=== PATIENT | male | born 1990 | race Caucasian/White ===

== ENCOUNTER 2018-04-27 10:37 | Outpatient (CLI) | payer SELFPAY ==
[2018-04-27 11:22] LABS: HCT 43.6 % (40.0-50.0); HGB 15.2 g/dL (13.5-17.5); Mean Corp. HGB Concentration 34.9 g/dL (32.0-36.0); Mean Platelet Volume 10.4 fL (8.0-11.0); Platelet Count 186 x1000/uL (130-400); RBC Distribution Width 13.1 % (11.8-14.1); White Blood Cell Count 5.18 k/cumm (4.4-10.8)
[2018-04-27 12:24] LABS: ALT 30 U/L (12-78); AST 16 U/L (15-37); Albumin 4.1 g/dL (3.4-5.0); Alkaline Phosphatase 127 U/L (46-116); Anion Gap 8.7 mmol/L (3-11); BUN 10 mg/dL (7-18); Bilirubin, Total 0.4 mg/dL (0.2-1.0); CO2 28.3 mmol/L (21.0-32.0); CREATININE 0.89 mg/dL (0.70-1.30); Chloride 105 mmol/L (98-107); Glucose 94 mg/dL (70-100); Lipase 77 U/L (73-393); Potassium 4.4 mmol/L (3.5-5.1); Sodium 142 mmol/L (136-145); Total Protein 7.1 g/dL (6.4-8.2)
[2018-04-30 14:16] LABS: Hepatitis C Ab w Rflx HCV PCR Reactive (NEGAT)
[2018-05-01 15:14] LABS: HCV RNA Detection Quantitative Undetected IU/mL (UNDECT)
== END 2018-04-27 10:57 ==
PROVIDERS: PCP Nurse Practitioner Family; Visit Provider Internal Medicine
DX: R10.13 Epigastric pain (principal); R11.2 Nausea with vomiting, unspecified; R49.0 Dysphonia; B19.20 Unspecified viral hepatitis C without hepatic coma
CPT/HCPCS: 36415; 80053; 83690; 85027; 86803; 85025; 87522

== ENCOUNTER 2018-08-16 09:14 | Emergency (ER) | payer MEDICAID, SELFPAY ==
[2018-08-16 09:18] VITALS: BP 127/66; PULSE 68; RESP 16; TEMP 36.8; O2SAT 97
--- NOTE | 2018-08-16 09:42 | W.ED.GENAD ---
Discharge Plan Disposition Patient Disposition: HOME Discharge Details Chief Complaint: Nausea/Vomit/Diar Clinical Impression: Nausea & vomiting, Diarrhea Primary Care Provider: Bryson Willard ED Provider: Ry Cheatham Home Meds and New Rx's Prescriptions: New ondansetron 4 mg tablet,disintegrating 4 mg PO BID PRN PRN (Reason: nausea and vomiting) 5 Days Qty: 10 RF: 0 Continued omeprazole 20 MG tablet,delayed release (DR/EC) 20 mg PO DAILY RF: 0 Buprenorphine/Naloxone [Suboxone 12 MG-3 MG SL FILM] 1 EACH Film 12 mg Sublingual DAILY RF: 0 ibuprofen 800 MG tablet 600 mg PO ONCE RF: 0 Discharge Instructions Instructions: Dehydration (ED), Acute Nausea and Vomiting (ED) Additional Instructions: Please drink small amounts of fluid often to stay hydrated. Use nausea medicine as prescribed. Please contact your primary care physician to arrange follow-up. Return to the ER for any worsening or new concerning symptoms. Stand Alone Forms: Work Release Referrals: Bryson Willard MD [Primary Care Provider] - Medical Decision Making 9:45 --28-year-old male here with nausea, vomiting, loose stool for the past 4 days. Abdomen benign. Hemodynamically stable. Clinically dehydrated. Plan to give IV fluid bolus. Will check screening labs including LFTs as patient has tested positive for hepatitis C in the past but then had a negative test subsequently. 11:50 --labs reviewed: Patient did have some ketones in his urine. Chemistries unremarkable. He was given 2 L of crystalloid and offered Zofran which he refused. He noted he was feeling much better and requesting discharge at this time. He is tolerating p.o. fluid. Disposition decision was made weighing the risks and benefits of hospitalization versus outpatient treatment, the risk for further decompensation, and the patient's wishes. The patient was stable and requested discharge. Prior to discharge, my usual and customary return precautions were reviewed with the patient - this included follow-up instructions and reason to return to the emergency department if condition worsens, does not improve as expected, or other new concerns arise. HPI General Mode of arrival: ambulatory. Date/Time Provider Initiated Documentation: 08/16/18 09:32. Limitations to Documentation: no limitations. Information obtained by: patient. HPI Narrative: 28yo m here with nausea, vomiting, and loose stool for the past 4 days. Symptoms persistent with no modifiers. No associated abdominal pain or fever. Has associated ENCINAS and body aches. Feels dehydrated. No recent travel. Related Data Home Medications Medication Instructions Recorded Confirmed omeprazole 20 mg PO DAILY 11/14/15 08/16/18 Buprenorphine/Naloxone [Suboxone 12 mg SUBLINGUAL DAILY 06/27/17 08/16/18 12 MG-3 MG SL FILM] ibuprofen 600 mg PO ONCE 06/27/17 08/16/18 ondansetron 4 mg PO BID PRN PRN 5 Days #10 tab 08/16/18 Previous Rx's Medication Instructions Recorded ondansetron 4 mg PO BID PRN PRN 5 Days #10 tab 08/16/18 Allergies Allergy/AdvReac Type Severity Reaction Status Date / Time No Known Allergies Allergy Unverified 08/16/18 09:34 General Stated Complaint: Nausea/Vomit/Diar MARIE: 3 Review of Systems Review of Systems All systems reviewed & are unremarkable except as noted in HPI and below Respiratory Reports cough (chronic) Gastrointestinal Denies melena, Denies hematochezia, Reports diarrhea, Reports nausea, Reports vomiting and Denies hematemesis [facility] Social History Smoking/Tobacco Use Status: Current every day Exam Const General: cooperative and no acute distress [facility] Head: normocephalic and atraumatic Mouth: mucous membranes dry Eyes Conjunctivae: normal conjunctivae Sclera: normal sclerae EOM: EOM intact bilaterally Neck Neck: trachea midline and supple Resp Auscultation: clear to auscultation bilaterally, no rales, no rhonchi and no wheezes Cardio Jugular venous pressure: no JVD Rate: regular rate and not tachycardic Rhythm: regular rhythm GI Palpation: soft, not firm, no guarding, no masses, not rigid and nontender Skin General skin exam: no rashes or lesions noted Neuro General: alert, awake, oriented x3 and tone normal Extrem General: no edema Psych Appearance: grossly normal Mental Status: mental status grossly normal Speech and Movement: speech and movement normal Course Vital Signs Temperature 36.8 C 08/16/18 09:18 Pulse 68 08/16/18 09:18 Respiratory Rate 16 08/16/18 09:18 Blood Pressure 127/66 08/16/18 09:18 Pulse Oximetry 97 08/16/18 09:18 Temperature 36.8 C 08/16/18 09:18 Temperature Source Skin 08/16/18 09:18 Pulse 68 08/16/18 09:18 Respiratory Rate 16 08/16/18 09:18 Blood Pressure 127/66 08/16/18 09:18 Blood Pressure Position Sitting 08/16/18 09:18 Pulse Oximetry 97 08/16/18 09:18 Oxygen Delivery Method Room Air 08/16/18 09:18 Oxygen Flow Rate 0 08/16/18 09:18 Pain Level 3 08/16/18 09:18
[2018-08-16] MEDS: Normal Saline 1,000 ML 1000 ML IV (09:45)
--- NOTE | 2018-08-16 09:45 | ED.GENADUL_ITS ---
Discharge Plan Disposition Patient Disposition: HOME Discharge Details Chief Complaint: Nausea/Vomit/Diar Clinical Impression: Nausea & vomiting, Diarrhea Primary Care Provider: Bryson Willard ED Provider: Ry Cheatham Home Meds and New Rx's Prescriptions: New ondansetron 4 mg tablet,disintegrating 4 mg PO BID PRN PRN (Reason: nausea and vomiting) 5 Days Qty: 10 RF: 0 Continued omeprazole 20 MG tablet,delayed release (DR/EC) 20 mg PO DAILY RF: 0 Buprenorphine/Naloxone [Suboxone 12 MG-3 MG SL FILM] 1 EACH Film 12 mg Sublingual DAILY RF: 0 ibuprofen 800 MG tablet 600 mg PO ONCE RF: 0 Discharge Instructions Instructions: Dehydration (ED), Acute Nausea and Vomiting (ED) Additional Instructions: Please drink small amounts of fluid often to stay hydrated. Use nausea medicine as prescribed. Please contact your primary care physician to arrange follow-up. Return to the ER for any worsening or new concerning symptoms. Stand Alone Forms: Work Release Referrals: Bryson Willard MD [Primary Care Provider] - Medical Decision Making 9:45 --28-year-old male here with nausea, vomiting, loose stool for the past 4 days. Abdomen benign. Hemodynamically stable. Clinically dehydrated. Plan to give IV fluid bolus. Will check screening labs including LFTs as patient has tested positive for hepatitis C in the past but then had a negative test subsequently. 11:50 --labs reviewed: Patient did have some ketones in his urine. Chemistries unremarkable. He was given 2 L of crystalloid and offered Zofran which he refused. He noted he was feeling much better and requesting discharge at this time. He is tolerating p.o. fluid. Disposition decision was made weighing the risks and benefits of hospitalization versus outpatient treatment, the risk for further decompensation, and the patient's wishes. The patient was stable and requested discharge. Prior to discharge, my usual and customary return precautions were reviewed with the patient - this included follow-up instructions and reason to return to the emergency department if condition worsens, does not improve as expected, or other new concerns arise. HPI General Mode of arrival: ambulatory . Date/Time Provider Initiated Documentation: 08/16/18 09:32 . Limitations to Documentation: no limitations . Information obtained by: patient . HPI Narrative: 28yo m here with nausea, vomiting, and loose stool for the past 4 days. Symptoms persistent with no modifiers. No associated abdominal pain or fever. Has associated ENCINAS and body aches. Feels dehydrated. No recent travel. Related Data Home Medications Medication Instructions Recorded Confirmed omeprazole 20 mg PO DAILY 11/14/15 08/16/18 Buprenorphine/Naloxone [Suboxone 12 mg SUBLINGUAL DAILY 06/27/17 08/16/18 12 MG-3 MG SL FILM] ibuprofen 600 mg PO ONCE 06/27/17 08/16/18 ondansetron 4 mg PO BID PRN PRN 5 Days #10 tab 08/16/18 Previous Rx's Medication Instructions Recorded ondansetron 4 mg PO BID PRN PRN 5 Days #10 tab 08/16/18 Allergies Allergy/AdvReac Type Severity Reaction Status Date / Time No Known Allergies Allergy Unverified 08/16/18 09:34 General Stated Complaint: Nausea/Vomit/Diar MARIE: 3 Review of Systems Review of Systems All systems reviewed & are unremarkable except as noted in HPI and below Respiratory Reports cough (chronic) Gastrointestinal Denies melena, Denies hematochezia, Reports diarrhea, Reports nausea, Reports vomiting and Denies hematemesis [facility] Social History Smoking/Tobacco Use Status: Current every day Exam Const General: cooperative and no acute distress [facility] Head: normocephalic and atraumatic Mouth: mucous membranes dry Eyes Conjunctivae: normal conjunctivae Sclera: normal sclerae EOM: EOM intact bilaterally Neck Neck: trachea midline and supple Resp Auscultation: clear to auscultation bilaterally, no rales, no rhonchi and no wheezes Cardio Jugular venous pressure: no JVD Rate: regular rate and not tachycardic Rhythm: regular rhythm GI Palpation: soft, not firm, no guarding, no masses, not rigid and nontender Skin General skin exam: no rashes or lesions noted Neuro General: alert, awake, oriented x3 and tone normal Extrem General: no edema Psych Appearance: grossly normal Mental Status: mental status grossly normal Speech and Movement: speech and movement normal Course Vital Signs Temperature 36.8 C 08/16/18 09:18 Pulse 68 08/16/18 09:18 Respiratory Rate 16 08/16/18 09:18 Blood Pressure 127/66 08/16/18 09:18 Pulse Oximetry 97 08/16/18 09:18 Temperature 36.8 C 08/16/18 09:18 Temperature Source Skin 08/16/18 09:18 Pulse 68 08/16/18 09:18 Respiratory Rate 16 08/16/18 09:18 Blood Pressure 127/66 08/16/18 09:18 Blood Pressure Position Sitting 08/16/18 09:18 Pulse Oximetry 97 08/16/18 09:18 Oxygen Delivery Method Room Air 08/16/18 09:18 Oxygen Flow Rate 0 08/16/18 09:18 Pain Level 3 08/16/18 09:18
[2018-08-16 09:53] LABS: Bilirubin Small (Negative); Blood Negative (Negative); Clarity Clear; Glucose Negative (Negative); Ketones 15 mg/dL (Negative); Leukocyte Esterase Negative (Negative); Nitrite Negative (Negative); Urobilinogen 0.2 EU/dL (Up TO 0.2)
[2018-08-16 10:11] LABS: Bacteria Negative HPF (Negative); C & S Indicated? No; Casts Negative LPF (Negative); Crystals Negative HPF (Negative); Epithelial Cells Rare HPF (Negative); Mucus Moderate (Negative); RBC 0-2 (0-2); WBC 0-2 HPF (0-5)
[2018-08-16] MEDS: Lactated Ringers 1,000 ML 1000 ML IV (10:24)
[2018-08-16 10:40] LABS: Abs Immature Grans 0.01 k/cumm (0.0-0.09); Absolute Basophil Count 0.02 k/cumm (0.0-0.2); Absolute Eosinophil Count 0.07 k/cumm (0.0-0.7); Absolute Lymphocyte Count 1.11 k/cumm (1.2-3.4); Absolute Monocyte Count 0.88 k/cumm (0.11-0.7); Absolute Neutrophil Count 4.47 k/cumm (1.2-6.7); Basophils % 0.3; Eosinophils % 1.1; HCT 47.3 % (40.0-50.0); HGB 16.7 g/dL (13.5-17.5); Immature Grans % 0.2; Lymphocytes % 16.9; Mean Corp. HGB Concentration 35.3 g/dL (32.0-36.0); Mean Corpuscular Hemoglobin 30.8 pg (27.0-33.0); Mean Corpuscular Volume 87.3 fL (80-95); Mean Platelet Volume 10.6 fL (8.0-11.0); Monocytes % 13.4; Neutrophils % 68.1; Platelet Count 183 x1000/uL (130-400); RBC 5.42 m/cumm (4.50-6.00); RBC Distribution Width 13.3 % (11.8-14.1); White Blood Cell Count 6.56 k/cumm (4.4-10.8)
[2018-08-16 10:57] LABS: ALT 21 U/L (12-78); AST 15 U/L (15-37); Alkaline Phosphatase 160 U/L (46-116); Anion Gap 9.4 mmol/L (3-11); BUN 9 mg/dL (7-18); Bilirubin, Total 0.5 mg/dL (0.2-1.0); CO2 29.6 mmol/L (21.0-32.0); CREATININE 0.93 mg/dL (0.70-1.30); Calcium 9.4 mg/dL (8.5-10.1); Chloride 101 mmol/L (98-107); Glucose 101 mg/dL (70-100); Lipase 81 U/L (73-393); Potassium 3.9 mmol/L (3.5-5.1); Sodium 140 mmol/L (136-145); Total Protein 7.8 g/dL (6.4-8.2)
[2018-08-16 11:17] LABS: Albumin 4.4 g/dL (3.4-5.0)
[2018-08-16 11:33] VITALS: BP 113/65; PULSE 60; RESP 14; TEMP 36.7; O2SAT 96
[2018-08-16 12:00] VITALS: BP 113/65; PULSE 60; RESP 14; TEMP 36.7; O2SAT 96
== END 2018-08-16 12:01 | disposition home or self-care (01) ==
PROVIDERS: Emergency Provider Student in an Organized Health Care Education/Training Program; PCP Internal Medicine
DX: R11.0 Nausea (principal); R19.7 Diarrhea, unspecified
CPT/HCPCS: 36415; 80053; 83690; 96361; 96374; 99284; 81003; 81015; 85025

== ENCOUNTER 2018-09-17 16:57 | Emergency (ER) | payer MEDICAID, SELFPAY ==
--- NOTE | 2018-09-17 17:07 | NUTRITION ---
pt stats that approximately 3 days ago he woke up with stiffness and pain in the back of his neck which has progresivly gotten worse tp the point where he can not rotate his head
[2018-09-17 17:09] VITALS: BP 142/92; PULSE 96; RESP 17; TEMP 37.4; O2SAT 95
--- NOTE | 2018-09-17 17:32 | DI.CT_ITS ---
SYMPTOMS/DIAGNOSIS: STIFF NECK, MIDLINE LOWER CERVICAL PAIN AND TENDERNESS TO PALPATION, PREVIOUS INTRAVENOUS DRUG USER, ? EPIDURAL SPACE INFECTION, ? ABSCESS CT OF THE CERVICAL SPINE: There is no evidence of fracture. No abnormal enhancing lesions are identified. There is some reversal of the normal cervical lordosis, which could be secondary to patient positioning or muscle spasm. There is no evidence of abscess. The parotid, submandibular and thyroid glands are unremarkable. No pneumothorax is seen at the lung apices. No tonsillar swelling or tonsillar abscess is seen. The vertebral and carotid arteries are unremarkable. IMPRESSION: Negative CT of the neck.
--- NOTE | 2018-09-17 17:39 | ED.GENADUL_ITS ---
Discharge Plan Disposition Patient Disposition: HOME Discharge Details Chief Complaint: Nk/Back Pain Clinical Impression: Acute neck pain, Arachnoid cyst Reason For Visit: stiff neck Primary Care Provider: Bryson Willard ED Provider: Ry Cheatham Home Meds and New Rx's Prescriptions: Continued omeprazole 20 MG tablet,delayed release (DR/EC) 20 mg PO DAILY RF: 0 Suboxone 12-3 mg Film 12 mg Sublingual DAILY RF: 0 ibuprofen 800 MG tablet 600 mg PO ONCE RF: 0 Discharge Instructions Instructions: Neck Pain (ED) Additional Instructions: Take ibuprofen as prescribed. Take Tylenol 650 mg every 6 hours as needed for pain. Please contact your primary care physician to arrange follow-up. You may need additional diagnostic testing. Return to the ER for any worsening or new concerning symptoms. Referrals: Bryson Willard MD [Primary Care Provider] - Medical Decision Making 17:38 --28-year-old male with prior history of IV drug here with midline low cervical upper thoracic back pain for the past 3 days. Neuro intact. Consider deep space infection. Plan to CT with IV contrast. Will give valium. 19:20 --CT cervical spine interpreted by radiology: FINDINGS: Vertebrae: Reversal of the normal cervical lordosis. No acute fracture or subluxation. Discs/Spinal canal/Neural foramina: No spinal stenosis. No neural foraminal narrowing. Other bones/joints: No focal erosions to suggest osteomyelitis. Soft tissues: The partially imaged arachnoid cyst is partially seen in the posterior fossa. Appears benign and incidental. Dental: Right mandibular dental caries. Larynx: Slight asymmetry of material within the vallecula is most likely within physiologic limits and is not appear particularly concerning especially at this patient's age. Lungs: Lung apices are normal. IMPRESSION: No CT evidence of discitis osteomyelitis. No soft tissue abscess. Suspect cervical strain. Patient was advised to follow-up with Dr. Willard. Arachnoid cyst noted and may be because of headaches that he is having the past. Advised he follow-up with his primary care physician and discuss official radiology report when available. Usual customary discharge instructions were provided. HPI General Mode of arrival: ambulatory . Date/Time Provider Initiated Documentation: 09/17/18 17:13 . Limitations to Documentation: no limitations . Information obtained by: patient . HPI Narrative: 28-year-old male with prior history of IV drug use here with chief complaint of neck pain. Patient notes he woke up 3 days ago with pain in his lower neck upper back in the middle. Pain has persisted. Flexeril and ibuprofen not helping. Pain is moderate to severe. Worse with movement of his neck. No associated headache. No numbness or weakness. No recent trauma. Related Data Home Medications Medication Instructions Recorded Confirmed omeprazole 20 mg PO DAILY 11/14/15 09/17/18 ibuprofen 600 mg PO ONCE 06/27/17 09/17/18 Suboxone 12 mg SUBLINGUAL DAILY 09/17/18 09/17/18 Allergies Allergy/AdvReac Type Severity Reaction Status Date / Time No Known Allergies Allergy Unverified 09/17/18 17:14 General Stated Complaint: Orthopedic MARIE: 4 Review of Systems Review of Systems All systems reviewed & are unremarkable except as noted in HPI and below Constitutional Denies headache(s) ENT Denies headache(s) Musculoskeletal Reports as per HPI Neurologic Denies headache(s) PFSH Social History Smoking/Tobacco Use Status: Current every day Exam Const General: cooperative and no acute distress HENMT Head: normocephalic and atraumatic Mouth: moist mucous membranes Eyes Conjunctivae: normal conjunctivae Sclera: normal sclerae EOM: EOM intact bilaterally Neck Neck: trachea midline Resp Auscultation: clear to auscultation bilaterally, no rales, no rhonchi and no wheezes Cardio Jugular venous pressure: no JVD Rate: regular rate and not tachycardic Rhythm: regular rhythm GI Palpation: soft, not firm, no guarding, no masses, not rigid and nontender Back/Spine/Pelvis Cervical Spine: cervical spinal tenderness (midline c7) and cervical ROM abnormal (limited 2/2 pain with rotation and extension) Thoracic/Lumbar Spine: thoracic spinal tenderness (t1 ttp) Skin General skin exam: no rashes or lesions noted Neuro General: alert, awake, oriented x3 and tone normal Extrem General: no edema Psych Appearance: grossly normal Mental Status: mental status grossly normal Speech and Movement: speech and movement normal Course Vital Signs Temperature 37.4 C 09/17/18 17:09 Pulse 96 H 09/17/18 17:09 Respiratory Rate 17 09/17/18 17:09 Blood Pressure 142/92 H 09/17/18 17:09 Pulse Oximetry 95 09/17/18 17:09 Temperature 37.4 C 09/17/18 17:09 Temperature Source Tympanic 09/17/18 17:09 Pulse 96 H 09/17/18 17:09 Respiratory Rate 17 09/17/18 17:09 Respiratory Effort 09/17/18 17:12 Blood Pressure 142/92 H 09/17/18 17:09 Blood Pressure Position Supine 09/17/18 17:09 Pulse Oximetry 95 09/17/18 17:09 Oxygen Delivery Method Room Air 09/17/18 17:09 Oxygen Flow Rate 0 09/17/18 17:09 Pain Level 8 09/17/18 17:22
[2018-09-17] MEDS: Diazepam 5 MG TAB PO (18:07)
[2018-09-17] MEDS: Omnipaque 350 MG/ML 100 ML BTL IJ (18:28)
[2018-09-17] MEDS: Normal Saline Flush 10 ML SYR IVP (18:29)
[2018-09-17 18:38] LABS: ALT 23 U/L (12-78); AST 17 U/L (15-37); Albumin 3.9 g/dL (3.4-5.0); Alkaline Phosphatase 97 U/L (46-116); Anion Gap 10.2 mmol/L (3-11); BUN 12 mg/dL (7-18); Bilirubin, Total 0.2 mg/dL (0.2-1.0); CO2 28.8 mmol/L (21.0-32.0); CREATININE 0.97 mg/dL (0.70-1.30); Chloride 106 mmol/L (98-107); Glucose 93 mg/dL (70-100); Potassium 3.8 mmol/L (3.5-5.1); Sodium 145 mmol/L (136-145); Total Protein 7.1 g/dL (6.4-8.2)
--- NOTE | 2018-09-17 18:54 | DI.VRAD_ITS ---
EXAM: CT Cervical Spine With Contrast EXAM DATE/TIME: 09/17/2018 5:35 PM CLINICAL HISTORY: 28 years old, male; Signs and symptoms; Other: Midline lower cervical pain and ttp. Prior ivdu; Additional info: ? Infection or abcess TECHNIQUE: Axial computed tomography images of the cervical spine with intravenous contrast. All CT scans at this facility use at least one of these dose optimization techniques: automated exposure control; mA and/or kV adjustment per patient size (includes targeted exams where dose is matched to clinical indication); or iterative reconstruction. Coronal and sagittal reformatted images were created and reviewed. CONTRAST: 100 ml of Omnipaque 350 administered intravenously. COMPARISON: No relevant prior studies available. FINDINGS: Vertebrae: Reversal of the normal cervical lordosis. No acute fracture or subluxation. Discs/Spinal canal/Neural foramina: No spinal stenosis. No neural foraminal narrowing. Other bones/joints: No focal erosions to suggest osteomyelitis. Soft tissues: The partially imaged arachnoid cyst is partially seen in the posterior fossa. Appears benign and incidental. Dental: Right mandibular dental caries. Larynx: Slight asymmetry of material within the vallecula is most likely within physiologic limits and is not appear particularly concerning especially at this patient's age. Lungs: Lung apices are normal. IMPRESSION: No CT evidence of discitis osteomyelitis. No soft tissue abscess. Dictated and Authenticated by: Janet Keen MD. Ordering:KAVYA Raza MD
[2018-09-17 19:10] LABS: Abs Immature Grans 0.01 k/cumm (0.0-0.09); Absolute Basophil Count 0.02 k/cumm (0.0-0.2); Absolute Eosinophil Count 0.18 k/cumm (0.0-0.7); Absolute Lymphocyte Count 2.26 k/cumm (1.2-3.4); Absolute Monocyte Count 0.72 k/cumm (0.11-0.7); Absolute Neutrophil Count 3.84 k/cumm (1.2-6.7); Basophils % 0.3; Eosinophils % 2.6; HCT 43.1 % (40.0-50.0); HGB 14.8 g/dL (13.5-17.5); Immature Grans % 0.1; Lymphocytes % 32.1; Mean Corp. HGB Concentration 34.3 g/dL (32.0-36.0); Mean Corpuscular Volume 90.2 fL (80-95); Mean Platelet Volume 10.5 fL (8.0-11.0); Monocytes % 10.2; Neutrophils % 54.7; Platelet Count 171 x1000/uL (130-400); RBC 4.78 m/cumm (4.50-6.00); RBC Distribution Width 13.6 % (11.8-14.1); White Blood Cell Count 7.03 k/cumm (4.4-10.8)
[2018-09-17 19:43] VITALS: BP 114/69; PULSE 60; RESP 16; TEMP 36.8; O2SAT 95
== END 2018-09-17 19:53 | disposition home or self-care (01) ==
PROVIDERS: Emergency Provider Student in an Organized Health Care Education/Training Program; PCP Internal Medicine
DX: M54.2 Cervicalgia (principal); G93.0 Cerebral cysts
CPT/HCPCS: 80053; 99285; 72126; 85025; 99284; J3490

== ENCOUNTER 2018-10-02 17:41 | Emergency (ER) | payer MEDICAID, SELFPAY ==
[2018-10-02 17:43] VITALS: BP 147/84; PULSE 100; RESP 16; TEMP 37; O2SAT 97
--- NOTE | 2018-10-02 17:55 | W.ED.GENAD ---
Discharge Plan Disposition Patient Disposition: HOME Condition: Stable Discharge Details Chief Complaint: RespSymp Clinical Impression: Cough Primary Care Provider: Bryson Willard ED Provider: Harry Guzman Home Meds and New Rx's Prescriptions: New prednisone 20 mg tablet 60 mg PO DAILY 5 Days Qty: 15 RF: 0 doxycycline hyclate 100 mg tablet 100 mg PO BID 7 Days Qty: 14 RF: 0 No Action omeprazole 20 MG tablet,delayed release (DR/EC) 20 mg PO DAILY RF: 0 Suboxone 12-3 mg Film 12 mg Sublingual DAILY RF: 0 Discharge Instructions Additional Instructions: You are being treated for early pneumonia. You have wheezing on exam. You should discuss with your primary care provider having formal testing for reactive airway disease Follow up with your primary care provider as scheduled tomorrow return to the emergency department if you have severe worsening shortness of breath or feel significantly more ill Medical Decision Making 28 yo male with hx of current smoking, denies alcohol or drug use comes in with 3 days of cough, and right ear pain. Denies recent travel, rashes, vomit. He is speaking in full sentences on exam, does have mild appearance of fatigue. He has wheezing at the bases bilaterally with no evidence of respiratory distress and does have smal amount of crackles at the right base. Both tm's show no redness or bulging, has mild fluid behind both ears. Could be viral uri but will tx for pna givfen lung exam findings. He has f/u with pcp tomorrow and will return if worsening. Given no fever and stable vitals do not feel imaging or labs indicated. I also advised that he get formal testing for Reactive airway disease Differential Diagnosis asthma, pna, uri, bronchitis HPI General Mode of arrival: ambulatory. Date/Time Provider Initiated Documentation: 10/02/18 17:51. Limitations to Documentation: no limitations. Information obtained by: patient. History of Present Illness 28 year old M presents to the emergency department with the chief complaint of right ear pain and cough, described as moderate, with intensity rated at 7. Quality is described as aching, Patient started experiencing this day(s) (3) and it has been constant. No relieving factors improve symptom(s), No exacerbating factors reported . Patient did receive the following treatments prior to arrival, none Related Data Home Medications Medication Instructions Recorded Confirmed omeprazole 20 mg PO DAILY 11/14/15 10/02/18 Suboxone 12 mg SUBLINGUAL DAILY 09/17/18 10/02/18 doxycycline hyclate 100 mg PO BID 7 Days #14 tab 10/02/18 prednisone 60 mg PO DAILY 5 Days #15 tab 10/02/18 Previous Rx's Medication Instructions Recorded doxycycline hyclate 100 mg PO BID 7 Days #14 tab 10/02/18 prednisone 60 mg PO DAILY 5 Days #15 tab 10/02/18 Allergies Allergy/AdvReac Type Severity Reaction Status Date / Time No Known Allergies Allergy Unverified 10/02/18 17:49 General Stated Complaint: RespSymp MARIE: 4 Review of Systems Review of Systems All systems reviewed & are unremarkable except as noted in HPI and below ENT Denies change in voice Gastrointestinal Denies vomiting Genitourinary Denies dysuria Integumentary/Breasts Denies rash [facility] Medical History Ureteral stone with hydronephrosis (Resolved) Headache (Acute) Hoarseness (Acute) Marijuana use, continuous (Acute) Anxiety and depression (Chronic) Cigarette smoker (Chronic) Encounter for monitoring Suboxone maintenance therapy (Chronic) Hiatal hernia (Chronic) History of hepatitis (Chronic) History of stomach ulcers (Chronic) Mood disorder (Chronic) Nausea & vomiting (Chronic) Obesity (Chronic) Opioid dependence (Chronic) Sleeping difficulties (Chronic) Social History Smoking and Tabacco status: Current every day Exam Const General: no acute distress Orientation: alert HENMT Head: normal to inspection Ears: external ears normal General nose exam: external nose normal Mouth: moist mucous membranes Eyes General: appearance normal, both eyes and all related structures Neck Neck: normal visual inspection Resp Effort & Inspection: normal respiratory effort and able to speak in complete sentences Cardio Rate: regular rate Skin General skin exam: no rashes or lesions noted Neuro General: alert and oriented x3 Extrem General: normal to inspection Psych Mental Status: mental status grossly normal Course Vital Signs Temperature 37.0 C 10/02/18 17:43 Pulse 100 H 10/02/18 17:43 Respiratory Rate 16 10/02/18 17:43 Blood Pressure 147/84 H 10/02/18 17:43 Pulse Oximetry 97 10/02/18 17:43 Temperature 37.0 C 10/02/18 17:43 Temperature Source Skin 10/02/18 17:43 Pulse 100 H 10/02/18 17:43 Respiratory Rate 16 10/02/18 17:43 Respiratory Effort Non-Labored 10/02/18 17:52 Respiratory Depth Normal 10/02/18 17:52 Blood Pressure 147/84 H 10/02/18 17:43 Blood Pressure Position Sitting 10/02/18 17:43 Pulse Oximetry 97 10/02/18 17:43 Oxygen Delivery Method Room Air 10/02/18 17:43 Oxygen Flow Rate 0 10/02/18 17:43 Pain Level 8 10/02/18 17:43
--- NOTE | 2018-10-02 17:58 | ED.GENADUL_ITS ---
Discharge Plan Disposition Patient Disposition: HOME Condition: Stable Discharge Details Chief Complaint: RespSymp Clinical Impression: Cough Primary Care Provider: Bryson Willard ED Provider: Harry Guzman Home Meds and New Rx's Prescriptions: New prednisone 20 mg tablet 60 mg PO DAILY 5 Days Qty: 15 RF: 0 doxycycline hyclate 100 mg tablet 100 mg PO BID 7 Days Qty: 14 RF: 0 No Action omeprazole 20 MG tablet,delayed release (DR/EC) 20 mg PO DAILY RF: 0 Suboxone 12-3 mg Film 12 mg Sublingual DAILY RF: 0 Discharge Instructions Additional Instructions: You are being treated for early pneumonia. You have wheezing on exam. You should discuss with your primary care provider having formal testing for reactive airway disease Follow up with your primary care provider as scheduled tomorrow return to the emergency department if you have severe worsening shortness of breath or feel significantly more ill Medical Decision Making 28 yo male with hx of current smoking, denies alcohol or drug use comes in with 3 days of cough, and right ear pain. Denies recent travel, rashes, vomit. He is speaking in full sentences on exam, does have mild appearance of fatigue. He has wheezing at the bases bilaterally with no evidence of respiratory distress and does have smal amount of crackles at the right base. Both tm's show no redness or bulging, has mild fluid behind both ears. Could be viral uri but will tx for pna givfen lung exam findings. He has f/u with pcp tomorrow and will return if worsening. Given no fever and stable vitals do not feel imaging or labs indicated. I also advised that he get formal testing for Reactive airway disease Differential Diagnosis asthma, pna, uri, bronchitis HPI General Mode of arrival: ambulatory . Date/Time Provider Initiated Documentation: 10/02/18 17:51 . Limitations to Documentation: no limitations . Information obtained by: patient . History of Present Illness 28 year old M presents to the emergency department with the chief complaint of right ear pain and cough, described as moderate, with intensity rated at 7. Quality is described as aching, Patient started experiencing this day(s) (3) and it has been constant. No relieving factors improve symptom(s), No exacerbating factors reported . Patient did receive the following treatments prior to arrival, none Related Data Home Medications Medication Instructions Recorded Confirmed omeprazole 20 mg PO DAILY 11/14/15 10/02/18 Suboxone 12 mg SUBLINGUAL DAILY 09/17/18 10/02/18 doxycycline hyclate 100 mg PO BID 7 Days #14 tab 10/02/18 prednisone 60 mg PO DAILY 5 Days #15 tab 10/02/18 Previous Rx's Medication Instructions Recorded doxycycline hyclate 100 mg PO BID 7 Days #14 tab 10/02/18 prednisone 60 mg PO DAILY 5 Days #15 tab 10/02/18 Allergies Allergy/AdvReac Type Severity Reaction Status Date / Time No Known Allergies Allergy Unverified 10/02/18 17:49 General Stated Complaint: RespSymp MARIE: 4 Review of Systems Review of Systems All systems reviewed & are unremarkable except as noted in HPI and below ENT Denies change in voice Gastrointestinal Denies vomiting Genitourinary Denies dysuria Integumentary/Breasts Denies rash [facility] Medical History Ureteral stone with hydronephrosis (Resolved) Headache (Acute) Hoarseness (Acute) Marijuana use, continuous (Acute) Anxiety and depression (Chronic) Cigarette smoker (Chronic) Encounter for monitoring Suboxone maintenance therapy (Chronic) Hiatal hernia (Chronic) History of hepatitis (Chronic) History of stomach ulcers (Chronic) Mood disorder (Chronic) Nausea & vomiting (Chronic) Obesity (Chronic) Opioid dependence (Chronic) Sleeping difficulties (Chronic) Social History Smoking and Tabacco status: Current every day Exam Const General: no acute distress Orientation: alert HENMT Head: normal to inspection Ears: external ears normal General nose exam: external nose normal Mouth: moist mucous membranes Eyes General: appearance normal, both eyes and all related structures Neck Neck: normal visual inspection Resp Effort & Inspection: normal respiratory effort and able to speak in complete se ntences Cardio Rate: regular rate Skin General skin exam: no rashes or lesions noted Neuro General: alert and oriented x3 Extrem General: normal to inspection Psych Mental Status: mental status grossly normal Course Vital Signs Temperature 37.0 C 10/02/18 17:43 Pulse 100 H 10/02/18 17:43 Respiratory Rate 16 10/02/18 17:43 Blood Pressure 147/84 H 10/02/18 17:43 Pulse Oximetry 97 10/02/18 17:43 Temperature 37.0 C 10/02/18 17:43 Temperature Source Skin 10/02/18 17:43 Pulse 100 H 10/02/18 17:43 Respiratory Rate 16 10/02/18 17:43 Respiratory Effort Non-Labored 10/02/18 17:52 Respiratory Depth Normal 10/02/18 17:52 Blood Pressure 147/84 H 10/02/18 17:43 Blood Pressure Position Sitting 10/02/18 17:43 Pulse Oximetry 97 10/02/18 17:43 Oxygen Delivery Method Room Air 10/02/18 17:43 Oxygen Flow Rate 0 10/02/18 17:43 Pain Level 8 10/02/18 17:43
[2018-10-02] MEDS: Albuterol HFA 8 GM 60 PUFF INH IH (17:59)
[2018-10-02] MEDS: Inhaler, Assist Device 1 EACH MC (18:00)
[2018-10-02 18:05] VITALS: BP 147/84; PULSE 100; RESP 16; TEMP 37; O2SAT 97
== END 2018-10-02 18:06 | disposition home or self-care (01) ==
PROVIDERS: Emergency Provider Emergency Medicine; PCP Internal Medicine
DX: R05 Cough (principal); H92.01 Otalgia, right ear; F17.210 Nicotine dependence, cigarettes, uncomplicated
CPT/HCPCS: 99283

== ENCOUNTER 2019-01-31 08:13 | Day surgery (SDC) | payer MEDICAID, SELFPAY ==
[2019-01-31 08:27] VITALS: BP 145/94; PULSE 80; RESP 16; TEMP 36.5; O2SAT 97
[2019-01-31] MEDS: Lactated Ringers 1,000 ML 80 ML IV ×2 (08:52→10:07)
--- NOTE | 2019-01-31 09:37 | W.PM.HP.N ---
Date of service: 01/31/19 Time of Service: 09:37 Assessment and Plan (1) Encounter for vasectomy: Current visit: Yes Status: Acute We discussed risk factors including bleeding, infection, chronic pain and recanalization of the vasa. The patient was again informed that he is not considered sterile right after this procedure. We will need a semen sample 8 to [address] to make sure the sperm are absent. History of Present Illness Chief Complaint: Elective sterilization Narrative: This is a 28-year-old gentleman who has 4 children. He and his partner are not interested in future pregnancies. He presents for vasectomy. He is never had prior scrotal surgery. He does have a history of substance abuse. He is on chronic Suboxone. He has no known bleeding disorders Review of Systems Review of Systems No fevers or chills No vision change or dysphasia No diabetes or thyroid No shortness of breath, cough or hemoptysis No chest pain or palpitations No nausea, vomiting, hepatitis. Hx GERD No seizures or peripheral neuropathy No bleeding disorders or anemia No gout PFSH Medical History Ureteral stone with hydronephrosis (Resolved) Headache (Acute) Hoarseness (Acute) Marijuana use, continuous (Acute) Anxiety and depression (Chronic) Cigarette smoker (Chronic) Encounter for monitoring Suboxone maintenance therapy (Chronic) Hiatal hernia (Chronic) History of hepatitis (Chronic) History of stomach ulcers (Chronic) Mood disorder (Chronic) Nausea & vomiting (Chronic) Obesity (Chronic) Opioid dependence (Chronic) Sleeping difficulties (Chronic) Surgical History History of surgery on left wrist (Acute) Social History Smoking/Tobacco Use Status: Current every day Tobacco Type: cigarettes Smoking packs per day: 10 Years smoked: 10 Tobacco: How many years used: 10 Alcohol Intake: never Drug use: Daily Substance use type: marijuana Details: Pt states he smokes and vapes marijuana daily Do you feel safe at home: Yes Do you feel safe in your relationship?: Yes Meds Home Medications Medication Instructions Recorded Confirmed Type omeprazole 20 mg PO DAILY 11/14/15 01/31/19 History buprenorphine-naloxone [Suboxone] 12 mg SUBLINGUAL DAILY 09/17/18 01/31/19 History Allergies Allergy/AdvReac Type Severity Reaction Status Date / Time No Known Allergies Allergy Unverified 01/31/19 08:26 Exam Narrative Exam Narrative: He is in no current distress. He does not appear septic or toxic. His vital signs are documented elsewhere in the chart His neck is supple none His chest wall motion is normal. His lungs are clear Cardiac exam shows a regular rate and rhythm The vas deferens are palpable and mobile He is awake and alert Results Last Vital Signs Temp 36.5 C 01/31/19 08:27 Pulse 80 01/31/19 08:27 Resp 16 01/31/19 08:27 BP 145/94 H 01/31/19 08:27 Pulse Ox 97 01/31/19 08:27
--- NOTE | 2019-01-31 09:42 | W.PM.DSUDISC ---
Discharge Plan Disposition Patient Disposition: HOME Condition: Stable Discharge Details Reason For Visit: vasectomy Attending Provider: Brenden Jones Primary Care Provider: Bryson Willard Home Meds and New Rx's Prescriptions: New ketorolac 10 mg tablet 10 mg PO Q6H MDD 4 PRN (Reason: pain) 2 Days Qty: 8 RF: 0 No Action omeprazole 20 MG tablet,delayed release (DR/EC) 20 mg PO DAILY RF: 0 buprenorphine-naloxone [Suboxone] 12-3 mg Film 12 mg Sublingual DAILY RF: 0 Discharge Instructions Additional Instructions: No lifting/straining for 48 hours Ice packs to scrotum (bag of frozen peas) for 48 hours while awake Script for Toradol sent to pharmacy - may take with tylenol but not with NSAIDs Semen sample needs to be brought to my office in 8 to 12 weeks Activity:: no lifting/straining for 48 hours Shower/Bathe:: 24 hours Diet:: As Tolerated Discharge Orders Discharge Orders: Discharge Order (Routine); Ordered 01/31/19 Ordered By: Brenden Jones DS: Diagnosis Discharge Diagnosis (1) Encounter for vasectomy: Status: Acute
[2019-01-31] MEDS: Lidocaine 1% Multi-Dose 50 ML VIAL (10:35)
[2019-01-31 11:20] VITALS: BP 118/64; PULSE 57; RESP 14; O2SAT 97
--- NOTE | 2019-02-01 07:49 | ROE_ITS ---
REPORT OF OPERATIVE PROCEDURE DATE OF PROCEDURE January 31, 2019 PREOPERATIVE DIAGNOSIS Elective sterilization. POSTOPERATIVE DIAGNOSIS Elective sterilization. PROCEDURE Vasectomy. SURGEON Brenden Jones M.D. ANESTHESIA MAC with local. COMPLICATIONS None. HISTORY This is a 28-year-old gentleman who has four children. He and his partner are not interested in [facility] pregnancies. He comes in for vasectomy. PROCEDURE The patient was brought to the Operating Room on 01/31/2019. He was given Monitored Anesthesia Care an d placed in the supine position. His genitalia was prepped and draped. We began on the patient's left side. We noticed a left varicocele, but we were able to isolate the v as deferens up against the scrotal skin. The skin was infiltrated with 1% Xylocaine. The skin was the n opened using a scalpel-free technique. The vas deferens was dissected free from its surrounding tissue. It was isolated with in a forceps. A 2-cm section of vas was excised; each cut end of the vas was cauterized, the more proximal end was b uried back beneath the adventitia using a simple interrupted #4-0 Chromic suture. We performed the same procedure on the right side. In this case a varicocele was not found. Neither of the specimens were sent to Pathology, this is the current recommendation of the [employer]. Once hemostasis had been achieved, the wounds were closed with Dermabond. The patient tolerated this procedure well. There were no complications.
== END 2019-01-31 11:45 | disposition home or self-care (01) ==
PROVIDERS: PCP Internal Medicine; Visit Provider Urology
PROC: (CPT 55250; principal; 2019-01-31 10:00)
DX: Z30.2 Encounter for sterilization (principal)
CPT/HCPCS: 55250; NC; J1100; J1200; J1885; J2405

== ENCOUNTER 2019-09-22 18:11 | Emergency (ER) | payer MEDICAID, SELFPAY ==
[2019-09-22 18:30] VITALS: BP 128/68; PULSE 67; RESP 18; TEMP 36.2; O2SAT 98
--- NOTE | 2019-09-22 19:16 | ED.GENADUL_ITS ---
Discharge Plan Disposition Patient Disposition: HOME Condition: Stable Discharge Details Chief Complaint: EarProblem Clinical Impression: Otitis media Primary Care Provider: Bryson Willard ED Provider: Lynne Shah Home Meds and New Rx's Prescriptions: New amoxicillin 500 mg capsule 500 mg PO QID 10 Days Qty: 40 RF: 0 Continued omeprazole 20 MG tablet,delayed release (DR/EC) 20 mg PO DAILY RF: 0 buprenorphine-naloxone [Suboxone] 12-3 mg Film 10 mg Sublingual DAILY RF: 0 trazodone 50 mg Tablet 50 mg PO QHS RF: 0 Discharge Instructions Instructions: Otitis Media (ED) Additional Instructions: Drink plenty of fluids and get plenty of rest. Alternate tylenol and motrin as needed and directed for pain. Take the antibiotics until finished. Follow-up with your primary care doctor in 1 week. Return to the emergency department with any worsening or new concerning symptoms. Stand Alone Forms: Work Release Discharge Data Discharge Date/Time-TO BE ENTERED AT DEPARTURE: 09/22/19 19:25 Discharge Physician: Lynne Shah Medical Decision Making 29-year-old male presents with bilateral ear pain since yesterday. Admits to recent cold symptoms. Vitals within normal limits. He appears nontoxic. Bilateral TM erythema and dullness, much more significant on the left with loss of landmarks and significant erythema. No effusion or drainage noted. Normal oropharynx. No drooling, trismus, submandibular swelling. Offered patient the option to wait and watch for worsening symptoms, but he would rather start antibiotics. As his left ear infection appears moderate to severe, will give a dose of amoxicillin here as well as prescription. Advised to follow up with the primary care doctor for re-evaluation. Usual and customary return precautions given prior to discharge. Medical Records Medical records reviewed: Yes I reviewed the patient's medical records. HPI General Mode of arrival: ambulatory . Date/Time Provider Initiated Documentation: 09/22/19 18:20 . Limitations to Documentation: no limitations . Information obtained by: patient . History of Present Illness 29 year old M presents to the emergency department with the chief complaint of b/l ear pain, worse on L side, Quality is described as aching and sharp, Patient started experiencing this day(s) (1) and it has been constant. No relieving factors improve symptom(s), No exacerbating factors reported . Patient notes denies cough, fever/chills and shortness of breath. Patient did receive the following treatments prior to arrival, none Related Data Home Medications Medication Instructions Recorded Confirmed omeprazole 20 mg PO DAILY 11/14/15 01/31/19 buprenorphine-naloxone [Suboxone] 10 mg SUBLINGUAL DAILY 09/17/18 01/31/19 amoxicillin 500 mg PO QID 10 Days #40 cap 09/22/19 trazodone 50 mg PO QHS 09/22/19 09/22/19 Previous Rx's Medication Instructions Recorded amoxicillin 500 mg PO QID 10 Days #40 cap 09/22/19 Allergies Allergy/AdvReac Type Severity Reaction Status Date / Time No Known Allergies Allergy Unverified 01/31/19 08:26 General Stated Complaint: EarProblem MARIE: 4 Review of Systems All systems reviewed & are unremarkable except as noted in HPI and below Constitutional Constitutional: Reports as per HPI, Denies chills and Denies fever(s) Eyes Eyes: Denies blurry vision ENT Ears, Nose, Mouth, and Throat: Denies dizziness, Reports otalgia, Denies sore throat and Denies throat swelling Cardiovascular Cardiovascular: Denies chest pain and Denies dyspnea Respiratory Respiratory: Denies cough and Denies dyspnea Gastrointestinal Gastrointestinal: Denies abdominal pain, Denies diarrhea and Denies vomiting Genitourinary Genitourinary: Denies hematuria and Denies dysuria Musculoskeletal Musculoskeletal: Denies back pain and Denies numbness Integumentary/Breasts Skin/Breast: Denies lesions and Denies rash Neurologic Neurologic: Denies dizziness, Denies focal weakness and Denies numbness Allergic/Immunologic Allergic/Immunologic: Denies throat swelling [facility] Social History Smoking/Tobacco Use Status: Current every day Tobacco Type: cigarettes Smoking packs per day: 10 Smoking cigarettes per day: 200.0 Years smoked: 10 Smoking pack-years: 100.00 Tobacco: How many years used: 10 Alcohol Intake: never Drug use: Daily Substance use type: marijuana Details: Pt states he smokes and vapes marijuana daily Do you feel safe at home: Yes Do you feel safe in your relationship?: Yes Exam Const General: cooperative, healthy appearing and no acute distress HENMT Head: normal to inspection Ears: hearing grossly normal bilaterally, external ears normal, TM abnormal bulging on the left, dull on the left, erythematous on the left and with loss of landmarks on the left and other (R TM minimally dull and erythematous) General nose exam: external nose normal Mouth: oral mucosae normal Throat: posterior oropharynx normal, uvula midline, no peritonsillar masses and no uvular edema Eyes General: appearance normal, both eyes and all related structures Neck Neck: normal visual inspection, full ROM, no lymphadenopathy, no meningeal signs, trachea midline, supple and No submandibular swelling Resp Effort & Inspection: normal respiratory effort and able to speak in complete sentences Cardio Rate: regular rate Skin General skin exam: no rashes or lesions noted Neuro General: alert, awake and oriented x3 Motor: muscle tone normal throughout Extrem General: normal to inspection and full ROM Psych Appearance: grossly normal Affect: normal affect Course Vital Signs Vital signs: Vital Signs Temperature 97.2 F L 09/22/19 18:30 Pulse 67 09/22/19 18:30 Respiratory Rate 18 09/22/19 18:30 Blood Pressure 128/68 09/22/19 18:30 Pulse Oximetry 98 09/22/19 18:30 Temperature 97.2 F L 09/22/19 18:30 Temperature Source Temporal Artery Scan 09/22/19 18:30 Pulse 67 09/22/19 18:30 Respiratory Rate 18 09/22/19 18:30 Respiratory Effort 09/22/19 18:32 Blood Pressure 128/68 09/22/19 18:30 Pulse Oximetry 98 09/22/19 18:30 Oxygen Delivery Method Room Air 09/22/19 18:30 Oxygen Flow Rate 0 09/22/19 18:30
[2019-09-22] MEDS: Amoxicillin 500 MG CAP PO ×2 (19:26→19:27)
== END 2019-09-22 19:25 | disposition home or self-care (01) ==
PROVIDERS: Emergency Provider Physician Assistant; PCP Internal Medicine
DX: H66.93 Otitis media, unspecified, bilateral (principal)
CPT/HCPCS: 99283

== ENCOUNTER 2020-01-20 18:47 | Emergency (ER) | payer MEDICAID, SELFPAY ==
[2020-01-20 18:54] VITALS: BP 145/90; PULSE 75; RESP 20; TEMP 36.5; O2SAT 98
--- NOTE | 2020-01-20 19:10 | ED.GENADUL_ITS ---
Discharge Plan Discharge Details Chief Complaint: Abd Prob Primary Care Provider: Bryson Willard ED Provider: Isac Campuzano Home Meds and New Rx's Prescriptions: No Action omeprazole 20 MG tablet,delayed release (DR/EC) 20 mg PO DAILY RF: 0 buprenorphine-naloxone [Suboxone] 12-3 mg Film 8 mg Sublingual DAILY RF: 0 trazodone 50 mg Tablet 50 mg PO QHS RF: 0 HPI General Mode of arrival: ambulatory . Date/Time Provider Initiated Documentation: 01/20/20 18:55 . Limitations to Documentation: no limitations . Information obtained by: patient . Related Data Home Medications Medication Instructions Recorded Confirmed omeprazole 20 mg PO DAILY 11/14/15 01/20/20 buprenorphine-naloxone [Suboxone] 8 mg SUBLINGUAL DAILY 09/17/18 01/31/19 trazodone 50 mg PO QHS 09/22/19 01/20/20 Allergies Allergy/AdvReac Type Severity Reaction Status Date / Time No Known Allergies Allergy Unverified 01/20/20 18:57 General Stated Complaint: Abd Prob MARIE: 3 PFSH Social History Smoking/Tobacco Use Status: Current every day Tobacco Type: cigarettes Smoking packs per day: 10 Smoking cigarettes per day: 200.0 Years smoked: 10 Smoking pack-years: 100.00 Tobacco: How many years used: 10 Alcohol Intake: never Drug use: Daily Substance use type: marijuana Details: Pt states he smokes and vapes marijuana daily Do you feel safe at home: Yes Do you feel safe in your relationship?: Yes Course Vital Signs Vital signs: Vital Signs Temperature 36.5 C 01/20/20 18:54 Pulse 75 01/20/20 18:54 Respiratory Rate 01/20/20 18:54 Blood Pressure 145/90 H 01/20/20 18:54 Pulse Oximetry 98 01/20/20 18:54 Temperature 36.5 C 01/20/20 18:54 Temperature Source Temporal Artery Scan 01/20/20 18:54 Pulse 75 01/20/20 18:54 Respiratory Rate 01/20/20 18:54 Respiratory Effort Non-Labored 01/20/20 18:58 Blood Pressure 145/90 H 01/20/20 18:54 Blood Pressure Position Sitting 01/20/20 18:54 Pulse Oximetry 98 01/20/20 18:54 Oxygen Delivery Method Room Air 01/20/20 18:54 Oxygen Flow Rate 0 01/20/20 18:54 Pain Level 4 01/20/20 18:58
[2020-01-20 19:39] LABS: Abs Immature Grans 0.01 k/cumm (0.0-0.09); Absolute Basophil Count 0.02 k/cumm (0.0-0.2); Absolute Eosinophil Count 0.19 k/cumm (0.0-0.7); Absolute Lymphocyte Count 1.97 k/cumm (1.2-3.4); Absolute Monocyte Count 0.66 k/cumm (0.11-0.7); Absolute Neutrophil Count 3.05 k/cumm (1.2-6.7); Basophils % 0.3; Eosinophils % 3.2; HGB 14.2 g/dL (13.5-17.5); Immature Grans % 0.2 %; Lymphocytes % 33.4; Mean Corp. HGB Concentration 35.5 g/dL (32.0-36.0); Mean Corpuscular Hemoglobin 31.4 pg (27.0-33.0); Mean Corpuscular Volume 88.5 fL (80-95); Mean Platelet Volume 9.9 fL (8.0-11.0); Monocytes % 11.2; Neutrophils % 51.7; Platelet Count 210 x1000/uL (130-400); RBC 4.52 m/cumm (4.50-6.00); RBC Distribution Width 13.1 % (11.8-14.1)
--- NOTE | 2020-01-20 19:45 | ED.GENADUL_ITS ---
Discharge Plan Disposition Patient Disposition: HOME Condition: Stable Discharge Details Chief Complaint: Abd Prob Clinical Impression: Corneal abrasion, right, Abdominal pain Primary Care Provider: Bryson Willard ED Provider: Harry Guzman Home Meds and New Rx's Prescriptions: Continued omeprazole 20 MG tablet,delayed release (DR/EC) 20 mg PO DAILY RF: 0 buprenorphine-naloxone [Suboxone] 12-3 mg Film 8 mg Sublingual DAILY RF: 0 trazodone 50 mg Tablet 50 mg PO QHS RF: 0 Discharge Instructions Instructions: Corneal Abrasion (ED), Abdominal Pain (ED) Additional Instructions: Apply erythromycin ointment to the right eye 4 times daily for the next 5 days. Alternate tylenol and motrin as needed and directed for pain. Follow-up with your primary care doctor in 1 week. Return to the emergency department with any worsening or new concerning symptoms. Discharge Data Discharge Physician: Lynne Shah Medical Decision Making <Lynne Shah DO - Last Filed: 01/20/20 20:10> 29-year-old male here with 2 complaints. Initial complaint of right eye irritation after possible rock hit right eye while weed whacking. There is a linear corneal abrasion noted in right eye. No foreign body noted with inspection including eyelid eversion. Erythromycin ointment and tetanus ordered. Second complaint of right lower quadrant intermittent sharp right flank and right lower quadrant abdominal pain with radiation into the right groin. No other associated symptoms of fever, vomiting, diarrhea, urinary symptoms. Differential diagnosis includes kidney stone although this appears less likely considering chronic nature and tenderness in the right lower quadrant, appendicitis, hernia, muscle strain, diverticulitis, etc. Will place an IV, bolus IV fluids, screening labs, urinalysis, CT abdomen pelvis with and without contrast, Toradol. Case endorsed to Dr. Guzman to follow-up on labs and imaging. <Harry Guzman MD - Last Filed: 01/20/20 20:45> labs and imaging unremarkable and has no tenderness on exam, will go home with erythro for his eye and advised to f/u with pcp and return precautions HPI <Lynne Shah DO - Last Filed: 01/20/20 20:10> General Mode of arrival: ambulatory . Date/Time Provider Initiated Documentation: 01/20/20 18:55 . Limitations to Documentation: no limitations . Information obtained by: patient . HPI Narrative: Patient is a 29-year-old male who presents to the ED with 2 complaints. Patient states he mainly came here with concern for foreign body or possible scratch to his right eye. Patient states at 5 PM this evening he was weed whacking without goggles when he felt a possible rock fly into his right eye. He states he has irritation now in his right eye. He is unsure of his tetanus status. He is also here with complaint of right flank, right lower quadrant with radiation to his right groin pain for the past 3 weeks. He has a history of kidney stone and states this feels similar. He is also concerned about a possible hernia. He states the pain is intermittent, sharp and feels worse at nighttime. He has occasionally taken Tylenol for this pain. He denies any fever, nausea, vomiting, urinary symptoms, diarrhea, change in bowel movements or known injury. Related Data Home Medications Medication Instructions Recorded Confirmed omeprazole 20 mg PO DAILY 11/14/15 01/20/20 buprenorphine-naloxone [Suboxone] 8 mg SUBLINGUAL DAILY 09/17/18 01/31/19 trazodone 50 mg PO QHS 09/22/19 01/20/20 Allergies Allergy/AdvReac Type Severity Reaction Status Date / Time No Known Allergies Allergy Unverified 01/20/20 18:57 General Stated Complaint: Abd Prob MARIE: 3 Review of Systems <Lynne Shah DO - Last Filed: 01/20/20 20:10> All systems reviewed & are unremarkable except as noted in HPI and below Constitutional Constitutional: Reports as per HPI, Denies chills and Denies fever(s) Eyes Eyes: Denies blurry vision and Reports irritation ENT Ears, Nose, Mouth, and Throat: Denies dizziness, Denies sore throat and Denies throat swelling Cardiovascular Cardiovascular: Denies chest pain and Denies dyspnea Respiratory Respiratory: Denies cough and Denies dyspnea Gastrointestinal Gastrointestinal: Reports abdominal pain, Denies diarrhea and Denies vomiting Genitourinary Genitourinary: Denies hematuria and Denies dysuria Musculoskeletal Musculoskeletal: Denies back pain and Denies numbness Integumentary/Breasts Skin/Breast: Denies lesions and Denies rash Neurologic Neurologic: Denies dizziness, Denies localized weakness and Denies numbness Allergic/Immunologic Allergic/Immunologic: Denies throat swelling PFSH <Lynne Shah DO - Last Filed: 01/20/20 20:10> Social History Smoking/Tobacco Use Status: Current every day Tobacco Type: cigarettes Smoking packs per day: 10 Smoking cigarettes per day: 200.0 Years smoked: 10 Smoking pack-years: 100.00 Tobacco: How many years used: 10 Alcohol Intake: never Drug use: Daily Substance use type: marijuana Details: Pt states he smokes and vapes marijuana daily Do you feel safe at home: Yes Do you feel safe in your relationship?: Yes Exam <Lynne Shah DO - Last Filed: 01/20/20 20:10> Const General: cooperative and healthy appearing Orientation: alert and awake HENMT Head: normal to inspection Ears: hearing grossly normal bilaterally, external ears normal and TM's normal bilaterally General nose exam: external nose normal Face and sinus: normal facial exam Mouth: oral mucosae normal Teeth and gingiva: dentition normal Throat: posterior oropharynx normal Eyes General: appearance normal, both eyes and all related structures Periorbital: periorbital findings normal Eyelids: eyelids normal Cornea: corneas abnormal on the right fluorescein used and abrasion linear (Located extending from center of pupil down to 4 o'clock position); without dendrites present, without edema, with no foreign body noted and without ulcerations Pupils: PERRL EOM: EOM intact bilaterally Neck Neck: normal visual inspection Lymphatic: no lymphadenopathy noted Chest Chest: normal inspection of the chest Resp Effort & Inspection: normal respiratory effort and able to speak in complete sentences Auscultation: clear to auscultation bilaterally Cardio Rate: regular rate Rhythm: regular rhythm GI Inspection: normal to inspection Palpation: soft, not firm, no guarding, no hepatosplenomegaly, no masses and te nder in the RLQ Auscultation: normal bowel sounds Male General Exam: Yes normal external exam Penis: normal penis Scrotum: scrotum normal Skin General skin exam: no rashes or lesions noted Neuro General: patient alert and patient awake Cognition: normal cognition Speech: speech normal Gait: normal gait Motor: muscle tone normal throughout Sensory Exam: no sensory deficits noted Extrem General: normal to inspection, full ROM and capillary refill normal Psych Appearance: grossly normal Mental Status: mental status grossly normal Speech and Movement: speech and movement normal Affect: normal affect Thought Process: normal Course <Lynne Shah DO - Last Filed: 01/20/20 20:10> Vital Signs Vital signs: Vital Signs Temperature 97.7 F 01/20/20 18:54 Pulse 75 01/20/20 18:54 Respiratory Rate 20 01/20/20 18:54 Blood Pressure 145/90 H 01/20/20 18:54 Pulse Oximetry 98 01/20/20 18:54 Temperature 97.7 F 01/20/20 18:54 Temperature Source Temporal Artery Scan 01/20/20 18:54 Pulse 75 01/20/20 18:54 Respiratory Rate 20 01/20/20 18:54 Respiratory Effort Non-Labored 01/20/20 18:58 Blood Pressure 145/90 H 01/20/20 18:54 Blood Pressure Position Sitting 01/20/20 18:54 Pulse Oximetry 98 01/20/20 18:54 Oxygen Delivery Method Room Air 01/20/20 18:54 Oxygen Flow Rate 0 01/20/20 18:54 Pain Level 4 01/20/20 18:58 Sign Out <Lynne Shah DO - Last Filed: 01/20/20 20:10> Sign Out Data: Sign Out Comment: Send home with erythromycin tube for right eye corneal abrasion. Follow-up on labs and imaging to rule out appendicitis first kidney stone versus hernia, etc. Last updated by Lynne Shah DO at 01/20/20 19:46
[2020-01-20 19:49] LABS: ALT 30 U/L (16-63); AST 19 U/L (15-37); Alkaline Phosphatase 80 U/L (46-116); Anion Gap 7.9 mmol/L (3-11); BUN 13 mg/dL (7-18); Bilirubin, Total 0.3 mg/dL (0.2-1.0); CO2 29.1 mmol/L (21.0-32.0); CREATININE 1.19 mg/dL (0.70-1.30); Calcium 8.9 mg/dL (8.5-10.1); Chloride 106 mmol/L (98-107); Glucose 97 mg/dL (74-106); Lipase 76 U/L (73-393); Potassium 3.8 mmol/L (3.5-5.1); Sodium 143 mmol/L (136-145); Total Protein 6.7 g/dL (6.4-8.2)
[2020-01-20] MEDS: Omnipaque 350 MG/ML 100 ML BTL IJ (19:59)
[2020-01-20] MEDS: Normal Saline 1,000 ML 1000 ML IV (20:00)
[2020-01-20] MEDS: Balanced Salt Solution 15 ML BTL (20:00)
[2020-01-20] MEDS: Erythromycin Ophth Oint 3.5 GM TUBE OU (20:00)
[2020-01-20] MEDS: Fluorescein STRIPS 100/BOX 1 MG (20:00)
[2020-01-20] MEDS: Ketorolac 30 MG/ML VIAL IVP (20:00)
[2020-01-20] MEDS: Tetracaine 0.5% 4 ML BTL (20:01)
[2020-01-20] MEDS: Normal Saline - Diluent 50 ML VIAL IV (20:14)
[2020-01-20] MEDS: Normal Saline Flush 10 ML SYR IVP (20:15)
--- NOTE | 2020-01-20 20:15 | DI.CT_ITS ---
EXAM: CT ABDOMEN PELVIS WO/W CLINICAL HISTORY: RLQ /R flank pain TECHNIQUE: Imaging Protocol: Axial computed tomography images with coronal and sagittal reformatted images were created and reviewed CONTRAST MATERIAL: Intravenous: Omnipaque 350 Contrast volume:100 mL Oral: No COMPARISON: CT ABD PELVIS WO CONTRAST from 05/22/2015 FINDINGS: ABDOMEN: Lung Bases: Minimal dependent basilar atelectasis Liver: Normal density. No measurable mass. Portal, Superior Mesenteric, and Splenic Veins: Unremarkable. Gallbladder and Biliary Tract: No radiodense calculus or dilation. Pancreas: Normal density, no abnormal calcifications or inflammatory process. Spleen: Normal. Adrenals: No masses seen. Kidneys: Normal size, contour and axis. No radiodense stones or obstructive uropathy. No masses seen. Abdominal Aorta: Abdominal portion non-dilated. Bowel: No obstruction or bowel wall thickening. Appendix is unremarkable. Small hiatal hernia. Peritoneal Cavity: No ascites, collection or mesenteric inflammatory response. Lymph Nodes: Within normal limits. Bones: Unremarkable. Soft Tissues: Unremarkable. PELVIS: Bladder: Symmetric distention, no gross wall thickening. Reproductive Organs: Unremarkable as visualized. Lymph Nodes: Within normal limits. Bones: L5 spondylolysis but no spondylolisthesis. IMPRESSION: No acute abnormalities. RADIATION DOSE DELIVERED: 2,698.92mGy.cm Total DLP 2,698.92mGy.cm Total DLP DATA REPOSITORY: All CT scans at this facility are submitted to the National Radiology Data Registry (NRDR) Dose Index Registry (DIR) with the [employer] (ACR). RADIATION OPTIMIZATION: All CT scans at this facility use at least one of these dose optimization te chniques: automated exposure control; mA and/or kV adjustment per patient size (includes targeted exa ms where dose is matched to clinical indication); or iterative reconstruction.
--- NOTE | 2020-01-20 20:36 | DI.VRAD_ITS ---
PROCEDURE INFORMATION: Exam: CT Abdomen And Pelvis Without And With Contrast Exam date and time: 01/20/2020 8:06 PM Age: 29 years old Clinical indication: Abdominal pain; Right lower quadrant (rlq); Prior surgery; Surgery date: 6+ months; Surgery type: Anaya procedure 10 years ago; Patient HX: Pain in rlq, R flank and into R groin. R/O kidney stone, hernia, appendicitis TECHNIQUE: Imaging protocol: Computed tomography of the abdomen and pelvis without and with intravenous contrast. Radiation optimization: All CT scans at this facility use at least one of these dose optimization techniques: automated exposure control; mA and/or kV adjustment per patient size (includes targeted exams where dose is matched to clinical indication); or iterative reconstruction. Contrast material: OMNIPAQUE 350; Contrast volume: 100 ml; Contrast route: IV RAC; COMPARISON: CT ABD PELVIS WITH CONTRAST 07/13/2014 2:57 PM FINDINGS: Lungs: There is minimal bibasilar atelectasis. Mediastinal space: Hiatal hernia. Liver: Normal. No mass. Gallbladder and bile ducts: Normal. No calcified stones. No ductal dilation. Pancreas: Normal. No ductal dilation. Spleen: Normal. No splenomegaly. Adrenals: Normal. No mass. Kidneys and ureters: Normal. No hydronephrosis. Stomach and bowel: No obstruction. No mucosal thickening. Appendix: Normal appendix. Intraperitoneal space: Unremarkable. No free air. No significant fluid collection. Vasculature: Unremarkable. No abdominal aortic aneurysm. Lymph nodes: Unremarkable. No enlarged lymph nodes. Bladder: Unremarkable as visualized. Reproductive: Unremarkable as visualized. Bones/joints: Unremarkable. No acute fracture. Soft tissues: Unremarkable. IMPRESSION: No acute findings. Dictated and Authenticated by: Chidi Van MD. Ordering:ADEEL Batista MD
[2020-01-20 20:46] LABS: Bilirubin Negative (Negative); Blood Negative (Negative); Clarity Clear (Clear); Glucose Negative (Negative); Ketones Negative (Negative); Leukocyte Esterase Negative (Negative); Nitrite Negative (Negative); Urobilinogen 0.2 EU/dL (Up TO 0.2)
[2020-01-20 20:54] VITALS: BP 145/90; PULSE 75; RESP 20; TEMP 36.5; O2SAT 98
== END 2020-01-20 20:55 | disposition home or self-care (01) ==
PROVIDERS: Physician Assistant; Emergency Provider Emergency Medicine; PCP Internal Medicine
DX: S05.01XA Injury of conjunctiva and corneal abrasion without foreign body, right eye, initial encounter (principal); W20.8XXA Other cause of strike by thrown, projected or falling object, initial encounter; Y93.H2 Activity, gardening and landscaping; R10.31 Right lower quadrant pain; Z87.442 Personal history of urinary calculi
CPT/HCPCS: 36415; 80053; 83690; 90471; 96361; 96374; 99285; 74178; 81003; 85025; J1885; J3490

== ENCOUNTER 2020-12-11 12:56 | Outpatient (REF) | payer MEDICAID, SELFPAY ==
[2020-12-17 17:55] LABS: Methylphenidate 140 ng/mL; Ritalinic Acid >10000 ng/mL
[2020-12-18 04:31] LABS: Fentanyl Interpretation Negative.; Fentanyl by LC-MS/MS Negative; Norfentanyl by LC-MS/MS Negative
== END 2020-12-11 12:57 | disposition home or self-care (01) ==
LOC: LBN 12:56
PROVIDERS: PCP Internal Medicine; Visit Provider Family Medicine
DX: F90.0 Attention-deficit hyperactivity disorder, predominantly inattentive type (principal); F11.20 Opioid dependence, uncomplicated
CPT/HCPCS: 80360; 80354

== ENCOUNTER 2021-04-01 17:41 | Outpatient (REF) | payer MEDICAID, SELFPAY ==
[2021-04-01 14:58] LABS: *AMPHETAMINES SCREEN URINE Negative (Negative); *BARBITURATES SCREEN URINE Negative (Negative); *BENZODIAZEPINES SCREEN URINE Negative (Negative); Cannabinoids THC Positive (Negative); Cocaine Screen,Urine Negative (Negative); METHADONE URINE SCREEN Negative (Negative); OPIATES URINE SCREEN Negative (Negative); Tricyclic Antidepressants Negative (Negative)
== END 2021-04-01 17:42 | disposition home or self-care (01) ==
LOC: NCHCN 17:41
PROVIDERS: PCP Internal Medicine; Visit Provider Internal Medicine
DX: Z13.89 Encounter for screening for other disorder (principal); Z02.89 Encounter for other administrative examinations
CPT/HCPCS: 80307

== ENCOUNTER 2022-11-01 15:00 | Outpatient (REF) | payer MEDICAID, SELFPAY ==
[2022-11-10 09:43] LABS: Amphetamines Negative ng/mL (Cutoff: 20); Barbiturates Negative ng/mL (Cutoff: 50); Benzodiazepines Negative ng/mL (Cutoff: 50); Cocaine Negative ng/mL (Cutoff: 20); Methadone Negative ng/mL (Cutoff: 25); Methamphetamine Negative ng/mL (Cutoff: 20); Norbuprenorphine,S/P 5.5 ng/mL; Opiates Negative ng/mL (Cutoff: 20); Phencyclidine Negative ng/mL (Cutoff: 10)
[2022-11-10 09:44] LABS: Buprenorphine Positive ng/mL (Cutoff: 1)
[2022-11-10 09:51] LABS: Buprenorphine,S/P 1.7 ng/mL
== END 2022-11-01 15:01 | disposition home or self-care (01) ==
LOC: NCHCN 15:00
PROVIDERS: PCP Internal Medicine; Visit Provider Internal Medicine
DX: F11.20 Opioid dependence, uncomplicated (principal); Z02.89 Encounter for other administrative examinations
CPT/HCPCS: 80348; 80349; 80307

== ENCOUNTER 2023-01-07 00:44 | Emergency (ER) | payer MEDICAID, SELFPAY ==
[2023-01-07 00:44] VITALS: BP 147/99; PULSE 94; RESP 16; TEMP 37.7; O2SAT 95
--- NOTE | 2023-01-07 00:45 | DI.RAD_ITS ---
Exam(s) XR ANKLE RT COMPLETE EXAM: XR ANKLE RT COMPLETE CLINICAL HISTORY: fall ,twisted ankle. TECHNIQUE: 2D digital imaging was performed. COMPARISON: No exams were available for comparison FINDINGS: 3 views There is no acute oblique fracture of distal fibula. No widening of the ankle mortise. Talar dome u nremarkable. Medial malleolus unremarkable. No degenerative changes in the ankle and subtalar joint s. IMPRESSION: Oblique fracture of the distal fibula. This appears to be at the level the distal tibial fibular chandrika nt DATA REPOSITORY: RADIATION DOSE DELIVERED:
--- OUTSIDE RECORDS SUMMARY | 2023-01-07 01:21 | XMS_ITS ---
Author Name [place] k[place] Address [address], [place] [id number] Organization [facility] Address [address], [place] [id number] Care Team Providers Care Grape Cutter Name Role Phone Cole Srivastava Unavailable [phone] PROBLEMS Type Condition ICD9-CM Code [id number] Code Onset Dates Condition Status SNOMED Code Problem Esophagitis, unspecified 530.10 Active 70015855 Problem Vomiting 787.03 Active 633405937 Problem Cough 786.2 Active 20262968 Problem Hoarseness 784.49 Active 27947116 Problem Heartburn 787.1 Active 34212234 Problem GERD 530.81 Active 366123418 ALLERGIES No Known Allergies ENCOUNTERS Encounter Location Date Diagnosis [facility] [address], [place] [id number] Apr, Encounter for other administrative examinations Z02.89 [facility] Op [address], [place] [id number] Oct, [facility] [address] [facility] [address] [place] [id number] Oct, [facility] [address] [facility] [address] [place] [id number] Oct, Heartburn 787.1 [facility] [address] [id number] Jul, Heartburn 787.1 [facility] [address] [id number] Jun, GERD 530.81 ; Heartburn 787.1 ; Hoarseness 784.49 ; Cough 786.2 and Esophagitis, unspecified 530.10 [facility] [address] [id number] May, GERD 530.81 ; Heartburn 787.1 ; Hoarseness 784.49 ; Cough 786.2 and Esophagitis, unspecified 530.10 [facility] [address] [id number] May, [facility] Op [address], [place] [id number] May, [address] [id number] May, GERD 530.81 ; Heartburn 787.1 ; Hoarseness 784.49 ; Cough 786.2 and Esophagitis, unspecified 530.10 [facility] [address] [id number] Apr, [facility] [address] [id number] Mar, [facility] [address] [id number] Mar, GERD 530.81 ; Heartburn 787.1 ; Hoarseness 784.49 ; Cough 786.2 and Esophagitis, unspecified 530.10 [facility] [address] [id number] Mar, [address] [id number] Feb, GERD 530.81 ; Heartburn 787.1 ; Hoarseness 784.49 ; Cough 786.2 and Esophagitis, unspecified 530.10 [facility] [address] [id number] Feb, [facility] [address] [id number] Feb, Esophagitis, unspecified 530.10 and Vomiting 787.03 [facility] [address] [id number] Feb, [facility] [address] [id number] Jan, [facility] [address] [place] [id number] December, [facility] [address] [facility] [address] [place], [place] [id number] December, GERD 530.81 ; Heartburn 787.1 ; Hoarseness 784.49 ; Cough 786.2 and Esophagitis, unspecified 530.10 [facility] [address] [id number] December, [facility] [address] [place] [id number] Nov, [facility] [address] [facility] [address] [place] [id number] Nov, GERD 530.81 ; Heartburn 787.1 ; Hoarseness 784.49 and Cough 786.2 IMMUNIZATIONS No Known Immunizations SOCIAL HISTORY Never Assessed REASON FOR REFERRAL FUNCTIONAL STATUS PLAN OF CARE VITAL SIGNS Weight 184 lbs 2010-10-20 Weight 183 lbs 2010-08-11 Temperature 96.6 degrees Fahrenheit Temperature 97.1 degrees Fahrenheit Heart Rate 72 /min 2010-08-11 Heart Rate 72 /min 2010-06-28 Heart Rate 66 /min 2010-03-17 Heart Rate 70 /min 2009-12-21 Heart Rate 66 /min 2009-12-09 Respiratory Rate 16 /min 2010-08-11 Respiratory Rate 16 /min 2010-06-28 Respiratory Rate 16 /min 2010-03-17 Respiratory Rate 16 /min 2009-12-21 Respiratory Rate 16 /min 2009-12-09 Blood pressure systolic 104 mm Hg Blood pressure diastolic 64 mm Hg 2010-05 MEDICATIONS Medication Instructions Dosage Frequency Start Date End Date Duration Status Tums 500 MG Orally Three times a day 2 tablets 8h 30 day(s) Active Tylenol 325 MG Orally as needed 1 tablet as needed Active Maalox Max 400-400-40 MG/5ML Orally Four times a day 10 ml as needed 6h Active PROCEDURES Procedure Date Ordered Result Body Site OCD Urine Drug Screen (collection only) May 05, 2022 EGD WITH BIOPSYS December 10, 2009 RESULTS Name Result Date Reference Range OCD URINE COLLECTION 2022-05-13 NM GASTRIC EMPTY 2010-03-16 REASON FOR VISIT occ dot ppx, occ udc, OCC udc , leonid fu egd done 11.05.2010, leonid fu egd done 11.05.2010, HEARTBURN, EGD setup, LEONID, pt wants to have a f/u, heartburn and vomiting, LEONID heartburn w/spicy food, dry heaving about 3 wks, no appetite, LEONID heartburn, LEONID heartburn, LEONID F/U Surgery, LEONID F/U Lap Anaya 05/21/10, LEONID F/U Surgery, wound, LAP ANAYA, POSS OPEN, LAP ANAYA, POSS OPEN, LAP ANAYA, POSS OPEN, cxsurgery, LAP ANAYA, POSS OPEN, resetting appt, LEONID F/U EGD DONE ON 03/09/2010 , GERD, [facility] PH testing, LEONID s/p manometry/egd, test, Gastric emptying study, [facility] Ph testing, motility test, LEONID, F/UEGD 12/10/09, Manometry, GERD, HEARTBURN, LEONID acid reflux, throwing up after eating Insurance Providers Health Insurance Type Health Plan Insurance Address Health Plan Insurance Phone Health Plan Insurance Name Health Plan Coverage Dates Member ID Patient Relationship to Subscriber Patient Address Patient Phone Patient Name Patient Date of Subscriber ID Subscriber Name Subscriber Date of Group No [employer] [address] [place]IPE [id number] [employer] [place] [id number] [employer] [address] [address] [facility] [address] [employer] self Kraig Call [id number] [employer] [place] [address] [facility] [id number] [place] self Kraig Call [id number] [id number]
--- OUTSIDE RECORDS SUMMARY | 2023-01-07 01:21 | XMS_ITS | Continuity of Care Document ---
Author Name Unknown Organization [facility] Address [address] [place] [id number] Encounter [facility] FIN NBR [id number] Date(s): 07/25/22 - 07/25/[address] [address]- Encounter Diagnosis Encounter for drug screening(Discharge Diagnosis) - 07/25/22 Discharge Disposition: Home or Self Care Attending Physician: Martha Barajas, GARMENT TURNER
--- NOTE | 2023-01-07 02:21 | ED.GENADUL_ITS ---
Discharge Plan Disposition Patient Disposition: Home Condition: Good Discharge Details Clinical Impression: Fracture of distal end of fibula Primary Care Provider: Bryson Willard ED Provider: Samy Honeycutt Home Meds and New Rx's Prescriptions: No Action omeprazole 20 MG tablet,delayed release (DR/EC) 20 mg PO DAILY Patient Comments: pt ni longer taking 09/22/2019 buprenorphine-naloxone [Suboxone] 12-3 mg Film 8 mg Sublingual DAILY trazodone 50 mg Tablet 50 mg PO QHS Discharge Instructions Instructions: Leg Fracture (ED) Additional Instructions: At this time we have evidence of fracture of your distal fibula. Please do not bear any weight on it. Use crutches as directed. Follow-up closely with the lan support specialist for reassessment. If you notice any worsening of your symptoms, or any new symptoms such as numbness or tingling in your foot, change in color of your foot, (loosen your splint immediately and contact us ) vomiting, diarrhea, fever, chills, shortness of breath, chest pain, numbness, weakness, or fainting , please return immediately to the emergency department for reevaluation. Please follow up with your primary care provider as soon as possible for reassessment and reevaluation. As always, it was a pleasure participating in your medical care today. Referrals: Russ Willis MD [ [facility] STAFF PHYSICIAN] - Francesco Arrington MD [ [facility] STAFF PHYSICIAN] - Bryson Willard MD [Primary Care Provider] - Medical Decision Making 32-year-old male presents today for evaluation of right ankle pain. Patient states that he overdosed on heroin earlier this evening, and tripped while high. He twisted his right ankle and heard a pop. He was brought in by EMS for further assessment. He denies any other complaints at this time. He denies any other trauma. No other modifying factors. Pain is made worse with movement. Improved by nothing. He denies any headache chest pain or abdominal pain. EMS report no additional complaints or history Exam demonstrates swelling and tenderness on the right lateral ankle. No other tenderness. No other signs of significant trauma. X-ray was ordered and shows evidence of a distal fibula fracture. Patient was splinted with a posterior short leg with stirrup, he will be given crutches and outpatient orthopedic follow-up. Patient is neurovascularly intact. No other evidence of trauma. Fa ther is at bedside. Discussed red flags for which to return. I have extensively reviewed the treatment plan and discharge instructions with the patient. I have addressed all patient concerns at this time. The patient was made aware of what symptoms to monitor for that would warrant a return to the emergency department. Discussed the plan with the patient, they demonstrate verbal understanding and agreement with our assessment and plan at this time. The documentation in this chart was dictated using [employer] dictation software. Please excuse any dictation errors. HPI General Date/Time Provider Initiated Documentation: 01/07/23 00:45 . HPI Narrative: 32-year-old male presents today for evaluation of right ankle pain. Patient states that he overdosed on heroin earlier this evening, and tripped while high. He twisted his right ankle and heard a pop. He was brought in by EMS for further assessment. He denies any other complaints at this time. He denies any other trauma. No other modifying factors. Pain is made worse with movement. Improved by nothing. He denies any headache chest pain or abdominal pain. EMS report no additional complaints or history Related Data Home Medications Medication Instructions Recorded Confirmed omeprazole 20 mg tablet,delayed 20 mg PO DAILY 11/14/15 01/07/23 release buprenorphine 12 mg-naloxone 3 mg 8 mg sublingual DAILY 09/17/18 01/07/23 sublingual film (Suboxone) trazodone 50 mg tablet 50 mg PO QHS 09/22/19 01/07/23 Allergies Allergy/AdvReac Type Severity Reaction Status Date / Time No Known Allergies Allergy Unverified 01/07/23 00:50 General Stated Complaint: Orthopedic MARIE: 4 Review of Systems All systems reviewed & are unremarkable except as noted in HPI and below PFSH All Active Problems Otitis media (Acute) Fracture of distal end of fibula (Acute) Encounter for vasectomy (Acute) Wound infection (Acute) Cellulitis (Acute) Phlebitis (Acute) Medical History Anxiety and depression Cigarette smoker Encounter for monitoring Suboxone maintenance therapy Headache Hiatal hernia History of hepatitis History of stomach ulcers Hoarseness Marijuana use, continuous morning and evening, patient states it helps nausea Mood disorder Nausea & vomiting Obesity Opioid dependence Sleeping difficulties Surgical History History of surgery on left wrist Debridement Social History Smoking/Tobacco Use Status: Current every day Tobacco Type: cigarettes Smoking packs per day: 10 Smoking cigarettes per day: 200.0 Years smoked: 10 Smoking pack-years: 100.00 Tobacco: How many years used: 10 Smoking risk assessment performed?: Yes Alcohol Intake: never Drug use: Daily Substance use type: marijuana Details: Pt states he smokes and vapes marijuana daily Do you feel safe at home: Yes Do you feel safe in your relationship?: Yes Exam Narrative Exam Narrative: 1.Const: Well-nourished, Well-developed, appearing stated age 2.Eyes: PERRL, no conjunctival injection, and symmetrical lids. 3.ENT: Atraumatic external nose and ears. Moist MM. Neck: Symmetric, trachea midline, No thyromegaly. There is no evidence of raccoon eyes, luna sign, CSF rhinorrhea, mastoid tenderness, cranial crepitus, hemotympanum, exophthalmos, or hyphema. Patient demonstrates intact dentition with no signs of tooth avulsion or fracture, no signs of jaw deformity, no evidence of a LeFort's fracture, with an intact palate, nose and orbital region. There is no evidence of a nasal septal hematoma. No proptosis. Jaw closes symmetrically. Airway is clear. 4.CVS: +S1/S2, No murmurs or gallops. Peripheral pulses 2+ and equal in all extremities. Brisk capillary refill in all extremities. 5.RESP: Unlabored respiratory effort. Clear to auscultation bilaterally. No wheezes rales or rhonchi 6.GI: Soft, Nontender/Nondistended, No hepatosplenomegaly. No guarding or rebound. 7.MSK: No trauma for the upper extremities. Mild swelling over the right lateral ankle. Pain with movement. No tenderness over the tarsals metatarsals or phalanges of the mid or proximal tip/fib. 8.Skin: Warm, Dry. No rashes or lesions. 9.Neuro: flume tender II-XII grossly intact. Sensation grossly intact, no focal neurologic deficits. 10.Psych: (AAO) x3. Appropriate mood and affect Course Vital Signs Vital signs: Vital Signs Temperature 37.7 C H 01/07/23 00:44 Pulse 94 H 01/07/23 00:44 Respiratory Rate 16 01/07/23 00:44 Blood Pressure 147/99 H 01/07/23 00:44 Pulse Oximetry 95 01/07/23 00:44 Temperature 37.7 C H 01/07/23 00:44 Temperature Source Temporal Artery Scan 01/07/23 00:44 Pulse 94 H 01/07/23 00:44 Respiratory Rate 16 01/07/23 00:44 Respiratory Effort Normal 01/07/23 00:44 Blood Pressure 147/99 H 01/07/23 00:44 Blood Pressure Position Sitting 01/07/23 00:44 Pulse Oximetry 95 01/07/23 00:44 Oxygen Delivery Method Room Air 01/07/23 00:44 Oxygen Flow Rate 0 01/07/23 00:44 Pain Level 8 01/07/23 00:55
--- NOTE | 2023-01-07 02:29 | DI.VRAD_ITS ---
PROCEDURE INFORMATION: Exam: XR Right Ankle Exam date and time: 01/07/2023 1:12 AM Age: 32 years old Clinical indication: Injury or trauma; Fall; Blunt trauma; Ankle; Right TECHNIQUE: Imaging protocol: Radiologic exam of the right ankle. Views: 3 or more views. COMPARISON: No relevant prior studies available. FINDINGS: Bones/joints: Acute fracture of the distal fibular metaphysis at the level of the distal tibiofibular joint. Soft tissues: Normal. IMPRESSION: Acute fracture of the distal fibular metaphysis at the level of the distal tibiofibular joint. Dictated and Authenticated by: Harry Lozano MD. Ordering:BROOKLYN Pablo MD
== END 2023-01-07 02:32 | disposition home or self-care (01) ==
PROVIDERS: Emergency Provider Student in an Organized Health Care Education/Training Program; PCP Internal Medicine
DX: S82.831A Other fracture of upper and lower end of right fibula, initial encounter for closed fracture (principal); F11.90 Opioid use, unspecified, uncomplicated; W01.0XXA Fall on same level from slipping, tripping and stumbling without subsequent striking against object, initial encounter
CPT/HCPCS: 29515; 99283; 73610

== ENCOUNTER 2023-01-17 14:48 | Outpatient (CLI) | payer MEDICAID, SELFPAY ==
--- NOTE | 2023-01-17 14:30 | DI.RAD_ITS ---
Exam(s) XR ANKLE RT COMPLETE EXAM: XR ANKLE RT COMPLETE CLINICAL HISTORY: F/U FRACTURE. TECHNIQUE: 2D digital imaging was performed of the right ankle. Six images were obtained. AP, late ral and oblique views were obtained. COMPARISON: CR,XR XR ANKLE RT COMPLETE from 01/07/2023 FINDINGS: BONES: There is again seen a mildly displaced acute fracture of the distal fibula. The fracture occu rs at the level of the ankle mortise. There has been no significant change compared to the prior exa mination. No bony destructive lesion is seen. JOINTS: The ankle mortise is normally aligned. SOFT TISSUE: Soft tissue swelling of the ankle particularly laterally. IMPRESSION: Mildly displaced distal right fibular fracture. DATA REPOSITORY: RADIATION DOSE DELIVERED:
== END 2023-01-17 14:49 | disposition home or self-care (01) ==
LOC: DIORS 14:48
PROVIDERS: PCP Internal Medicine; Referring Provider Internal Medicine; Visit Provider Student in an Organized Health Care Education/Training Program
DX: S82.421D Displaced transverse fracture of shaft of right fibula, subsequent encounter for closed fracture with routine healing (principal); X58.XXXD Exposure to other specified factors, subsequent encounter
CPT/HCPCS: 73610

== ENCOUNTER 2023-05-18 15:28 | Outpatient (REF) | payer MEDICAID, SELFPAY ==
[2023-05-18 15:16] LABS: PROTEIN 47.3 mg/dL; Prot/Crea Ur Ratio 0.13
== END 2023-05-18 15:29 | disposition home or self-care (01) ==
LOC: NCHCN 15:28
PROVIDERS: PCP Internal Medicine; Visit Provider Internal Medicine
DX: I10 Essential (primary) hypertension (principal)
CPT/HCPCS: 82565; 84156

== ENCOUNTER 2024-10-17 14:02 | Outpatient (REF) | payer MEDICAID, SELFPAY ==
[2024-10-17 15:39] LABS: ALT 23 U/L (16-63); AST 15 U/L (15-37); Albumin 4.4 g/dL (3.4-5.0); Alkaline Phosphatase 179 U/L (46-116); Anion Gap 7.4 mmol/L (3-11); BUN 12 mg/dL (7-18); Bilirubin, Total 0.5 mg/dL (0.2-1.0); CO2 28.6 mmol/L (21.0-32.0); Calcium 9.7 mg/dL (8.5-10.1); Calculated LDL 148 mg/dL (<100); Chloride 107 mmol/L (98-107); Cholesterol 219 mg/dL (<200); Estimated GFR 101.92 (mL/min/1.73m2); Glucose 97 mg/dL (74-106); HDL Cholesterol 48 mg/dL (>or=40); Potassium 4.5 mmol/L (3.5-5.1); Sodium 143 mmol/L (136-145); Total Protein 7.6 g/dL (6.4-8.2); Triglyceride 119 mg/dL (<150)
[2024-10-18 11:44] LABS: HIV-1/2 Ag & Ab Screen Negative (Negative)
[2024-10-18 12:28] LABS: Hepatitis C Ab w Rflx HCV PCR Reactive (Negative)
[2024-10-21 12:45] LABS: HCV RNA Qualitative Undetected (Undetected)
== END 2024-10-17 14:03 | disposition home or self-care (01) ==
LOC: NCHCN 14:02
PROVIDERS: PCP Nurse Practitioner Family; Visit Provider Nurse Practitioner Family
DX: Z13.1 Encounter for screening for diabetes mellitus (principal)
CPT/HCPCS: 80053; 80061; 86803; 87389; 87522

== ENCOUNTER 2025-03-12 17:17 | Outpatient (REF) | payer MEDICAID, SELFPAY ==
[2025-03-12 21:10] LABS: Abs Immature Grans 0.03 10^3/uL (0.0-0.06); HCT 43.9 % (40.0-50.0); HGB 15.5 g/dL (13.5-17.5); Immature Grans % 0.3 %; MCH 31.3 pg (27.0-33.0); MCHC 35.3 % (32.0-36.0); MCV 89 fL (80-95); MPV 10.7 fL (8.0-11.0); Platelet Count 237 10^3/uL (130-400); RBC 4.96 10^6/uL (4.36-5.78); RDW 13.1 % (11.8-14.1); RDW-SD 42.6 fL; WBC 8.71 10^3/uL (4.4-10.8)
[2025-03-12 21:31] LABS: ALT 36 U/L (16-63); AST 28 U/L (15-37); Albumin 4.3 g/dL (3.4-5.0); Alkaline Phosphatase 115 U/L (46-116); Anion Gap 6.6 mmol/L (3-11); BUN 8 mg/dL (7-18); Bilirubin, Total 0.3 mg/dL (0.2-1.0); CO2 27.4 mmol/L (21.0-32.0); Calcium 9.3 mg/dL (8.5-10.1); Chloride 106 mmol/L (98-107); Estimated GFR 119.84 (mL/min/1.73m2); Glucose 90 mg/dL (74-106); Potassium 4.2 mmol/L (3.5-5.1); Sodium 140 mmol/L (136-145); TSH (W/Ref FT4) 1.08 uIU/mL (0.36-3.74); Total Protein 7.3 g/dL (6.4-8.2)
[2025-03-14 10:49] LABS: Lyme Ab w Rflx to Lyme Confirm Negative (Negative)
== END 2025-03-12 17:18 | disposition home or self-care (01) ==
LOC: NCHCN 17:17
PROVIDERS: PCP Nurse Practitioner Family; Visit Provider Nurse Practitioner Family
DX: R53.82 Chronic fatigue, unspecified (principal)
CPT/HCPCS: 80053; 84443; 85025; 86618